=== PATIENT | male | born 1980 | race Hispanic/Latino ===

== ENCOUNTER 2024-08-09 14:59 | Emergency (ER) | payer OTHER ==
[~2024-08-09] VITALS: Ht 170.2 cm; Wt 90.7 kg
[2024-08-09 15:25] VITALS: TEMP 98.8
--- NOTE | 2024-08-09 15:27 | EKG ---
[facility] Test Date: 2024-08-09 Test Time: 15:25:42 Pat Name: SWATHI HYATT Department: ED Room: Gender: M Improvement Specialist: [id number] : 1980 Requested By: ALBERTINA LI Order Number: [id number] Reading MD: Cherri Dill Measurements Intervals [place] Rate: 70 P: 12 SD: 146 QRS: -1 QRSD: 104 T: 44 QT: 412 QTc: 444 Interpretive Statements Sinus rhythm Probable left ventricular hypertrophy Anterior ST elevation, probably due to LVH No previous ECG available for comparison Electronically Signed On 08-10-2024 17:24:36 [employer] by Cherri Dill Please click the below link to view image of tracing.
--- NOTE | 2024-08-09 15:47 | ERN ---
ED Note History of Present Illness Stated Complaint: HYPERTENSION Chief Complaint: Hypertension Time Seen by MD: 15:05 Dictation: Patient is a 44-year-old male with past medical history of hypertension came to the ED with chief complaint of high blood pressure today. Patient takes lisinopril daily and takes an additional drug case of elevated blood pressure while checking in the senior living, he was given lisinopril and 0.1 mg clonidine and brought to the ED. Patient denies chest pain, shortness of breath, headaches, n ausea, vomiting, diarrhea, swelling of the feet. Patient currently has cough. Patient has no other issues Allergies: Coded Allergies: No Known Drug Allergies (Unverified Allergy, Unknown, 08/09/24) Home Meds Active Scripts Amoxicillin/Potassium Clav (Amox Tr-K Clv 875-125 mg Tab) 875 Mg-125 Mg Tablet, 1 TAB PO BID for 5 Days, #10 TAB 0 Refills Prov:ALBERTINA LI MD 08/09/24 Past Medical History Past Medical History: Hypertension Surgical History: None Review of System Dictation Constitutional-no chills, weight loss/gain, fever Eyes-no injury, pain, redness and discharge ENT-no injury, pain, swelling Cardiovascular no chest pain, palpitations, edema Respiratory no shortness of breath, wheezing patient has mild cough Abdomen/GI-no abdominal pain, diarrhea, constipation, vomiting, nausea Back no injury and pain Genitourinary no injury, bleeding and discharge Musculoskeletal/extremities no injury, deformity Skin no rash, discoloration Neuro-no headache, weakness, numbness, tingling, seizures, tremors Psych-no suicidal ideation, homicidal ideation, hallucinations, depression, anxiety, memory loss Initial Vital Sign VS Vital Signs Date Time Temp Pulse Resp B/P (MAP) Pulse Ox O2 Delivery O2 Flow Rate FiO2 08/09/24 15:01 98.1 75 17 172/117 98 Room Air 08/09/24 15:25 0 21 Physical Exam Dictation General-patient is awake alert and oriented Head/neck-normocephalic, atraumatic Eyes-PERRL, EOMI, vision at baseline Neck-trachea midline, supple, no nuchal rigidity Cardiovascular-RRR, normal S1/S2, no MRG is, no JVD Respiratory-no distress, wheezing, rales, rhonchi Abdomen-no tenderness, guarding, soft, nondistended Skin warm, dry, normal turgor, no rash Musculoskeletal/extremities pulses equal, no cyanosis Neuro-COA X 4, GCS 15, strength 5/5, CN 2-12 intact Psych-normal behavior, mood and affect normal Results (Laboratory/Radiology) Laboratory/Radiology Laboratory Tests Test 08/09/24 15:30 08/09/24 15:41 White Blood Count 13.3 K/uL (4.8-10.8) H Red Blood Count 5.37 MIL/uL (4.50-6.20) Hemoglobin 16.8 g/dL (14.0-18.0) Hematocrit 49.9 % (42-54) Mean Corpuscular Volume 92.9 fL (79-99) Mean Corpuscular Hemoglobin 31.3 pg (27.0-33.0) Mean Corpuscular Hemoglobin Concent 33.7 g/dL (32.0-36.0) Red Cell Distribution Width 12.1 % (11.0-15.5) Platelet Count 382 K/uL (130-400) Mean Platelet Volume 10.0 fL (7.5-10.5) Immature Granulocyte % (Auto) 0.5 % (0-1) Neutrophils (%) (Auto) 76.3 % (40.0-77.0) Lymphocytes (%) (Auto) 15.6 % (21.0-51.0) L Monocytes (%) (Auto) 6.7 % (3.0-13.0) Eosinophils (%) (Auto) 0.5 % (0.0-8.0) Basophils (%) (Auto) 0.4 % (0.0-5.0) Neutrophils # (Auto) 10.1 K/uL (1.8-7.7) H Lymphocytes # (Auto) 2.1 K/uL (1.0-4.8) Monocytes # (Auto) 0.9 K/uL (0.1-1.0) Eosinophils # (Auto) 0.07 K/uL (0.00-0.70) Basophils # (Auto) 0.05 K/uL (0.00-0.20) Absolute Immature Granulocyte (auto 0.06 K/uL (0-1) Nucleated Red Blood Cells 0.0 % (0.0-0.19) Sodium Level 136 mmol/L (136-145) Potassium Level 4.4 mmol/L (3.5-5.1) Chloride Level 99 mmol/L (101-111) L Carbon Dioxide Level 31 mmol/L (21-32) Blood Urea Nitrogen 10 mg/dL (7-18) Creatinine 0.9 mg/dL (0.5-1.3) Glomerular Filtration Rate Calc 107 mL/min (>90) Random Glucose 113 mg/dL (70-105) H Total Calcium 9.8 mg/dL (8.5-10.1) Total Creatine Kinase 147 U/L (21-232) Troponin I High Sensitivity 17 ng/L (4-75) B-Type Natriuretic Peptide 139 pg/mL (0-100) H Influenza Type A Antigen Negative For Type A Influenza Type B Antigen Negative For Type B SARS-CoV-2 Antigen (Rapid) PRESUMPTIVE NEGATIVE ED Course ED Course Orders Procedure Category Date Status Time Cbc With Differential LAB 08/09/24 Complete 15:05 B-Type Natriuretic LAB 08/09/24 Complete Peptide 15:05 Chest 1vw RAD 08/09/24 Resulted 15:05 12 Lead Ekg Tracing- EKG 08/09/24 Resulted Technical 15:05 Creatine Kinase, Total LAB 08/09/24 Complete 15:05 Troponin I High LAB 08/09/24 Complete Sensitivity 15:05 Basic Metabolic Panel LAB 08/09/24 Complete 15:05 Influenza Type A & B, LAB 08/09/24 Complete Rapid 15:35 Covid19 (Sars Antigen LAB 08/09/24 Complete Rapid) 15:35 Vital Signs Date Time Temp Pulse Resp B/P (MAP) Pulse Ox O2 Delivery O2 Flow Rate FiO2 08/09/24 16:14 67 18 150/106 98 Room Air* 0 21 08/09/24 15:25 98.8 77 18 149/103 98 Room Air* 0 21 08/09/24 15:01 98.1 75 17 172/117 98 Room Air Medical Decision Making MDM INITIAL IMPRESSION Initial history and physical concerning for hypertension I have reviewed the triage nursing notes and vital signs. Initial plan: Laboratory evaluation and x-ray DATA REVIEW I have reviewed additional NN, repeat VS, and monitoring where indicated. Heart rate, blood pressure, and O2 saturation are acceptable. ED COURSE Interventions: Labs and imaging Reassessment: Not indicated DISPOSITION Final diagnostic impression: Hypertension I discussed my findings, clinical impression and treatment recommendations with the patient. My final plan for disposition was made based upon -mild risk of complications and potential morbidity of the patient's condition. -Discussion with the patient regarding management options. Patient will be discharged DX & DISP Disposition: Discharge Departure Impression: Primary Impression: Hypertension Additional Impression: Viral upper respiratory tract infection with cough Condition: Stable Scripts Amoxicillin/Potassium Clav (Amox Tr-K Clv 875-125 mg Tab) 875 Mg-125 Mg Tablet 1 TAB PO BID for 5 Days, #10 TAB 0 Refills Prov: ALBERTINA LI MD 08/09/24 Additional Instructions: Come back to the ED if you have any acute or emergency symptoms Take the medication as prescribed. do not skip any blood pressure medication Time of Disposition: 16:48 I have reviewed I have reviewed the case I have examined patient I performed a substantive portion of the visit. I have reviewed and personally made and approve the management plan that is documented in the notes by myself with CAIN/resident. I acknowledged full responsibility for the patient's management plan. ALBERTINA LI MD Aug 09, 2024 15:47 HESHAM RIOS DO Aug 11, 2024 12:25
[2024-08-09 15:50] LABS: BASOPHILS # (AUTO) 0.05 K/uL (0.00-0.20); BASOPHILS % (AUTO) 0.4 % (0.0-5.0); EOSINOPHILS # (AUTO) 0.07 K/uL (0.00-0.70); EOSINOPHILS % (AUTO) 0.5 % (0.0-8.0); HEMATOCRIT 49.9 % (42-54); IMMATURE GRANULOCYTE ABSOLUTE 0.06 K/uL (0-1); LYMPHOCYTES # (AUTO) 2.1 K/uL (1.0-4.8); LYMPHOCYTES % (AUTO) 15.6 % (21.0-51.0); MEAN CORPUSCULAR HEMOGLOBIN 31.3 pg (27.0-33.0); MEAN CORPUSCULAR HGB CONC 33.7 g/dL (32.0-36.0); MEAN CORPUSCULAR VOLUME 92.9 fL (79-99); MONOCYTES # (AUTO) 0.9 K/uL (0.1-1.0); MONOCYTES % (AUTO) 6.7 % (3.0-13.0); NEUTROPHILS # (AUTO) 10.1 K/uL (1.8-7.7); NEUTROPHILS % (AUTO) 76.3 % (40.0-77.0); PLATELET COUNT (AUTO) 382 K/uL (130-400); RED BLOOD CELL COUNT(AUTO) 5.37 MIL/uL (4.50-6.20); RED CELL DISTRIBUTION WIDTH 12.1 % (11.0-15.5); WHITE BLOOD COUNT (AUTO) 13.3 K/uL (4.8-10.8)
[2024-08-09 15:59] LABS: CREATININE 0.9 mg/dL (0.5-1.3); POTASSIUM 4.4 mmol/L (3.5-5.1)
[2024-08-09 16:14] VITALS: BP 150/106; PULSE 67; RESP 18; O2SAT 98
[2024-08-09 16:16] LABS: B-TYPE NATRIURETIC PEPTIDE 139 pg/mL (0-100)
--- NOTE | 2024-08-09 16:18 | HMCIMG ---
CHEST 1VW REASON: mild shortness of breath COMPARISON: None. FINDINGS: Single view of the chest was obtained. Lungs are clear. Heart size is borderline. There is no pulmonary vascular congestion. Mediastinum and bony thorax appear unremarkable. IMPRESSION: 1. Borderline heart size, no acute finding.
[2024-08-09 16:23] LABS: COVID19 (SARS ANTIGEN RAPID) PRESUMPTIVE NEGATIVE (NEGATIVE)
[2024-08-09 16:24] LABS: INFLUENZA TYPE A Negative For Type A (NEGATIVE); INFLUENZA TYPE B Negative For Type B (NEGATIVE)
[2024-08-09] MEDS ORDERED: AMOX1TAB16 PO (16:49)
== END 2024-08-09 17:14 ==
LOC: EEVIPCON 14:59 → EDH 14:59
DX: J06.9 Acute upper respiratory infection, unspecified (principal); B97.89 Other viral agents as the cause of diseases classified elsewhere; I10 Essential (primary) hypertension; Z20.822 Contact with and (suspected) exposure to COVID-19
CPT/HCPCS: 36415; 71045; 80048; 82550; 83880; 84484; 85025; 87426; 87804; 93005; 99285